=== PATIENT | female | born 1960 | race Caucasian/White ===

== ENCOUNTER → 2021-10-09 | Day surgery (SDC) | payer MEDICARE ==
[~2021-10-09] VITALS: Ht 172.7 cm; Wt 90.8 kg
[~2021-10-09] MED LIST: ACETAMINOPHEN325 MG PO; BRIN10TA PO; DICLOFENAC POTA50 MG PO; DICLOFENAC SODI75 MG PO; DULOXETINE HCL30 MG PO; HCTZ25 MG PO; HYDROCODON-ACE1 EAC6 PO; LIPITOR 10MG TA10 MG PO; MAXALT10 MG PO; MELOXICAM15 MG PO; OXYCODON-ACETA1 EAC1 PO; PERCOCET 7.5/321 TAB PO; TRAZODONE 100M100 MG PO
[2021-10-09 08:23] LABS: BUN/CREAT RATIO (CALC) 16.3 RATIO; CREATININE 0.98 mg/dL (0.51-0.95); POTASSIUM 3.8 mmol/L (3.5-5.1)
== END | disposition home or self-care (01) ==
LOC: FAS 07:26
PROVIDERS: Anesthesiology
DX: D17.0 Benign lipomatous neoplasm of skin and subcutaneous tissue of head, face and neck (principal); I10 Essential (primary) hypertension; K21.9 Gastro-esophageal reflux disease without esophagitis; M19.90 Unspecified osteoarthritis, unspecified site; E78.5 Hyperlipidemia, unspecified; F41.9 Anxiety disorder, unspecified; F32.A Depression, unspecified; F17.210 Nicotine dependence, cigarettes, uncomplicated; Z79.899 Other long term (current) drug therapy; Z88.6 Allergy status to analgesic agent; Z72.89 Other problems related to lifestyle
CPT/HCPCS: 36415; 80048; 93005; J1100; J1885; J2250; J2405; J2704; J3010; J7120